=== PATIENT | male | born 1950 | race Caucasian/White ===

== ENCOUNTER 2023-02-18 10:31 | Outpatient (CLI) | payer MEDICARE, BC | END 2023-02-18 10:32 | disposition home or self-care (01) | LOC: CSHMRI 10:31 | PROVIDERS: ATTEND Specialist | DX: M51.9 Unspecified thoracic, thoracolumbar and lumbosacral intervertebral disc disorder (principal); Z98.890 Other specified postprocedural states; M47.816 Spondylosis without myelopathy or radiculopathy, lumbar region; M48.05 Spinal stenosis, thoracolumbar region; Z98.1 Arthrodesis status | CPT/HCPCS: 72148 ==